=== PATIENT | female | born 1980 | race Caucasian/White ===

== ENCOUNTER → 2019-07-03 | Outpatient (CLI) | payer BC ==
--- NOTE | 2019-07-03 08:59 | US ---
EXAMINATION TYPE: US thyroid st tissue head/neck DATE OF EXAM: 07/03/2019 COMPARISON: NONE CLINICAL HISTORY: E04.9 Goiter. No thyroid meds. GLAND SIZE: Right Lobe: 3.9 x 1.6 x 1.7 cm Overall Parenchyma: homogenous Left Lobe: 4.1 x 1.4 x 1.4 cm Overall Parenchyma: homogeneous Isthmus Thickness: 0.2 cm NODULES RIGHT: # of nodules measured on right: 0 LEFT: # of nodules measured on left: 1 1. 0.7 X 0.5 x 0.3 cm mixed nodule at the mid pole with well-defined margins. This nodule is wider than tall and shows intranodular vascularity. Prior size: No prior ISTHMUS: # of nodules measured in the isthmus: 0.2 Bilateral neck scanned, no evidence of lymphadenopathy. Thyroid gland is diffusely hypervascular. IMPRESSION: Diffusely hypervascular thyroid gland suggesting thyroiditis. Solitary subcentimeter left thyroid nod ule is seen for which follow-up thyroid ultrasound in one year could be performed.
== END ==
LOC: RADUSWWP 07:44
PROVIDERS: ATTEND Family Medicine
DX: E04.9 Nontoxic goiter, unspecified (principal); R93.89 Abnormal findings on diagnostic imaging of other specified body structures
CPT/HCPCS: 76536

== ENCOUNTER → 2019-12-09 | Outpatient (CLI) | payer BC ==
--- NOTE | 2019-12-09 13:00 | ECHOF ---
Referral Reason:R00.2 palpitations MEASUREMENTS -------- HEIGHT: 162.6 cm WEIGHT: 61.2 kg BP: RVIDd: 2.1 cm (< 3.3) IVSd: 0.7 cm (0.6 - 1.1) LVIDd: 4.7 cm (3.9 - 5.3) LVPWd: 0.8 cm (0.6 - 1.1) IVSs: 1.1 cm LVIDs: 3.1 cm LVPWs: 1.4 cm LA Diam: 2.7 cm (2.7 - 3.8) LAESV Index (A-L): 15.85 ml/m Ao Diam: 2.5 cm (2.0 - 3.7) AV Cusp: 1.8 cm (1.5 - 2.6) MV EXCURSION: 14.664 mm (> 18.000) MV EF SLOPE: 75 mm/s (70 - 150) EPSS: 0.3 cm MV E Jason: 0.72 m/s MV DecT: 186 ms MV A Jason: 0.75 m/s MV E/A Ratio: 0.96 RAP: 5.00 mmHg RVSP: 20.59 mmHg FINDINGS -------- Sinus rhythm. This was a technically good study. LV size, wall thickness and systolic function are normal, with an EF greater than 55%. The diastoli c filling pattern is normal for the age of the patient 6.78. The right ventricle is normal in size. The left atrial size is normal. Normal LA size by volume 22+/-6 ml/m2. The right atrial size is normal. There is mild aortic valve sclerosis. There is no evidence of aortic regurgitation. Mild mitral annular calcification present. Mild mitral regurgitation is present. Mild tricuspid regurgitation present. Right ventricular systolic pressure is normal at < 35 mmHg. There is no evidence of pulmonary hypertension. There is no pulmonic regurgitation present. The aortic root size is normal. There is no pericardial effusion. CONCLUSIONS -------- 1. Sinus rhythm. 2. This was a technically good study. 3. LV size, wall thickness and systolic function are normal, with an EF greater than 55%. 4. The diastolic filling pattern is normal for the age of the patient 6.78 5. The right ventricle is normal in size. 6. The left atrial size is normal. 7. Normal LA size by volume 22+/-6 ml/m2. 8. The right atrial size is normal. 9. There is mild aortic valve sclerosis. 10. Mild mitral annular calcification present. 11. Mild mitral regurgitation is present. 12. Mild tricuspid regurgitation present. 13. Right ventricular systolic pressure is normal at < 35 mmHg. 14. There is no evidence of pulmonary hypertension. 15. There is no pulmonic regurgitation present. 16. The aortic root size is normal. 17. There is no pericardial effusion. PACK TRAIN DRIVER: Tanvi Tirado RDCS
== END | disposition home or self-care (01) ==
LOC: RADECHMAIN 11:49
PROVIDERS: ATTEND Family Medicine
DX: I08.3 Combined rheumatic disorders of mitral, aortic and tricuspid valves (principal)
CPT/HCPCS: 93270; 93306

== ENCOUNTER → 2020-03-23 | Day surgery (SDC) | payer BC ==
[2020-03-19 14:43] VITALS: BMI 24.0
[~2020-03-23] MED LIST: SODIUM CHLORIDE 0.9% 1,000 ML IV SCH; SODIUM CHLORIDE 0.9% 500 ML 500 ML IV ONE
[2020-03-23 11:39] VITALS: BP 142/87; PULSE 67; RESP 16; TEMP 98.2
--- NOTE | 2020-03-23 18:28 | P.PCN ---
Preoperative Diagnosis: Diagnosis Recurrent syncope and presyncope Twelve-lead ECG shows sinus mechanism normal WI narrow QRS normal ST segments No delta waves no epsilon waves known QT interval normal ST segments in the precordial leads Tilt table test per protocol line Baseline blood pressure 127/80 mmHg and Baseline heart rate 78 beats a minute Patient was tilted upright at an angle of 70 per protocol there is a mild increase in heart rate to 107 beats a minute she complained of being tired and complains of mild chest tightness. No change in blood pressure noted Patient is laid supine she complained of mild dizziness heart rates went back to 69 beats a minute Impression Mild increase in heart rate consistent with mild orthostatic intolerance Normal twelve-lead EKG Patient did not have a syncopal spell during this tilt table test
== END ==
LOC: CATHEP 10:50
PROVIDERS: ATTEND Internal Medicine Clinical Cardiac Electrophysiology
DX: R55 Syncope and collapse (principal); R07.89 Other chest pain; R00.2 Palpitations; R42 Dizziness and giddiness; R00.0 Tachycardia, unspecified; Z79.899 Other long term (current) drug therapy
CPT/HCPCS: 81025; 93005; 93660

== ENCOUNTER → 2022-08-29 | Outpatient (CLI) | payer BC ==
--- NOTE | 2022-08-29 13:46 | US ---
EXAMINATION TYPE: US thyroid st tissue head/neck DATE OF EXAM: 08/29/2022 COMPARISON: CLINICAL HISTORY: E04.1 THYROID NODULE. follow up thyroid nodule GLAND SIZE: Right Lobe: 3.5 x 1.2 x 1.7 cm Overall Parenchyma: homogenous Left Lobe: 3.5 x 1.3 x 1.6 cm Overall Parenchyma: homogeneous Isthmus Thickness: 0.2 cm NODULES RIGHT: # of nodules measured on right: 0 LEFT: # of nodules measured on left: 1 1. 0.6 X 0.5 x 0.4 cm, lower mid, solid or almost completely solid, hypoechoic nodule, which is wid er than tall, with ill-defined margins, without echogenic foci. Prior size: 0.7 x 0.5 x 0.3 cm ISTHMUS: # of nodules measured in the isthmus: 0 Bilateral neck scanned, no evidence of lymphadenopathy. IMPRESSION: Stable solid nodule left thyroid lobe. 2017 ACR TI-RADS LEVEL: *Highest TI-RADS level nodule reported
== END | disposition home or self-care (01) ==
LOC: RADUSWWP 13:10
PROVIDERS: ATTEND Family Medicine
DX: E04.1 Nontoxic single thyroid nodule (principal)
CPT/HCPCS: 76536

== ENCOUNTER → 2024-07-03 | Outpatient (CLI) | payer BC ==
--- NOTE | 2024-07-03 09:38 | MM ---
Reason for Exam: Additional evaluation requested from prior study. Last screening mammogram was performed 12 month(s) ago. Patient History: Menarche at age 13. First Full-Term at age 31. Late child-bearing (after 30). Premenopausal. Patient has history of breast feeding. Hormonal Contraceptives, from age 28 until age 29. Maternal cousin had breast cancer, age 52. Risk Values: Shannan 5 year model risk: 1.0%. NCI Lifetime model risk: 11.9%. Prior Study Comparison: 06/21/2023 Bilateral MG 3D screening mammo w/cad, [facility]. 06/27/2023 Bilateral MG 3D work up w/cad [facility], [facility]. Tissue Density: The breasts are extremely dense, which lowers the sensitivity of mammography. Findings: Analyzed By CAD. No evidence for mass or distortion. No suspicious calcifications. Overall Assessment: Negative, BI-RAD 1 Management: Screening Mammogram of both breasts in 1 year. . Results were given to the patient verbally at the time of exam. Patient should continue monthly self-breast exams. A clinical breast exam by your physician is recommended on an annual basis. This exam should not preclude additional follow-up of suspicious palpable abnormalities. Note on Shannan scores and lifetime risk: 1. A Shannan score greater than 3% is considered moderate risk. If this is the case, consider specialist referral to assess eligibility for a risk reducing agent. 2. If overall lifetime risk for the development of breast cancer is 20% or higher, the patient may qualify for future screening with alternating mammogram and breast MRI. [facility], , 07/03/2024 9:34 AM. Electronically signed and approved by: Marvin Das M.D. Radiologis
== END | disposition home or self-care (01) ==
LOC: RADMAMWWP 09:04
PROVIDERS: ATTEND Obstetrics & Gynecology
CPT/HCPCS: 77062; 77066

== ENCOUNTER → 2024-09-04 | Outpatient (CLI) | payer BC ==
--- NOTE | 2024-09-06 21:02 | NM ---
EXAMINATION TYPE: NM thyroid image w uptake DATE OF EXAM: 09/05/2024 COMPARISON: NONE CLINICAL INDICATION: Female, 44 years old with history of E05.90 THYROTOXICOSIS, UNSP WITHOUT THYROTO XIC CRI; TECHNIQUE: Thyroid iodine uptake is calculated and images performed after the oral administration of 301 uCi 1-123 Capsule. FINDINGS: There is normal distribution of activity throughout the gland. The 4 hour iodine uptake is calculated at 14.4%% (normal range 8-14%). The 24-hour iodine uptake is calculated at 28.8% (normal range 15-35%). Imaging is performed over the thyroid post injection. Thyroid lobes are homogenous and symmetrical. IMPRESSION: 1. Borderline prominent uptake 4 hours with normal uptake at 24 hours. 2. No suspicious nodules on thyroid scan [facility], , 09/06/2024 9:00 PM
== END | disposition home or self-care (01) ==
LOC: RADNMMAIN 08:32
PROVIDERS: ATTEND Internal Medicine Endocrinology, Diabetes & Metabolism
DX: E05.90 Thyrotoxicosis, unspecified without thyrotoxic crisis or storm (principal)
CPT/HCPCS: 78014; A9516

== ENCOUNTER → 2024-09-04 | Outpatient (CLI) | payer BC ==
[2024-09-04 18:54] LABS: ALT 13 U/L (8-44); AST 16 U/L (13-35); Albumin 4.5 g/dL (3.8-4.9); Alkaline Phosphatase 59 U/L (41-126); BUN/Creat Ratio 17.38 Ratio (12.00-20.00); Blood Urea Nitrogen 13.9 mg/dL (9.0-27.0); Calcium 9.5 mg/dL (8.7-10.3); Carbon Dioxide 27.5 mmol/L (21.6-31.8); Chloride 103 mmol/L (96-109); Globulin 2.5 g/dL (1.6-3.3); Glucose 97 mg/dL (70-110); Potassium 4.3 mmol/L (3.5-5.5); Sodium 141 mmol/L (135-145); Total Bilirubin 0.2 mg/dL (0.3-1.2)
[2024-09-05 10:56] LABS: Thyroid Stim Immun Quant <0.10 IU/L (<0.10)
== END | disposition home or self-care (01) ==
LOC: LABWHC1 14:09
PROVIDERS: ATTEND Internal Medicine Endocrinology, Diabetes & Metabolism
DX: E05.90 Thyrotoxicosis, unspecified without thyrotoxic crisis or storm (principal); R53.83 Other fatigue
CPT/HCPCS: 36415; 80053; 82533; 82607; 84146; 84305; 84443; 84445; 84480

== ENCOUNTER → 2025-02-03 | Outpatient (CLI) | payer BC | END | disposition home or self-care (01) | LOC: LABWHC1 13:37 | PROVIDERS: ATTEND Internal Medicine Endocrinology, Diabetes & Metabolism | DX: E05.90 Thyrotoxicosis, unspecified without thyrotoxic crisis or storm (principal) | CPT/HCPCS: 36415; 84439; 84443; 84480 ==